=== PATIENT | female | born 1970 | race African-American/Black ===

== ENCOUNTER 2022-02-23 17:37 | Emergency (ER) | payer MEDICAID, OTHER ==
[~2022-02-23] VITALS: Ht 165.1 cm; Wt 79.5 kg
[2022-02-23 18:58] VITALS: BP 123/63
== END 2022-02-23 21:45 | disposition home or self-care (01) ==
LOC: EMS 17:37
DX: F41.9 Anxiety disorder, unspecified (principal); F12.90 Cannabis use, unspecified, uncomplicated; Z98.890 Other specified postprocedural states
CPT/HCPCS: 93005; 99283

== ENCOUNTER 2024-05-26 17:04 | Emergency (ER) | payer OTHER ==
[~2024-05-26] VITALS: Ht 162.6 cm; Wt 75.0 kg
[2024-05-26 17:11] VITALS: TEMP 97.8
[2024-05-26] MEDS: AMOX TR/POT CLAV 875 MG/125 MG TABLET PO ONE (18:09)
[2024-05-26] MEDS: PERTUSS(ACELL),DIPH,TET/PF 0.5 ML SYRINGE [ADULT] IM. ONE (18:11)
[2024-05-26] MEDS ORDERED: AMOX-457 PO (18:46)
[2024-05-26 19:13] VITALS: BP 111/59; PULSE 92; RESP 18; O2SAT 98
== END 2024-05-26 19:20 | disposition home or self-care (01) ==
LOC: EMS 17:04
DX: S61.452A Open bite of left hand, initial encounter (principal); F41.9 Anxiety disorder, unspecified; F12.90 Cannabis use, unspecified, uncomplicated; Z90.89 Acquired absence of other organs; Y04.1XXA Assault by human bite, initial encounter; Y93.89 Activity, other specified; Y92.89 Other specified places as the place of occurrence of the external cause; Y99.8 Other external cause status
CPT/HCPCS: 90471; 90715; 99283

== ENCOUNTER 2025-02-19 14:20 | Emergency (ER) | payer OTHER ==
[~2025-02-19] VITALS: Ht 162.6 cm; Wt 72.7 kg
[~2025-02-19 14:20] MED LIST: AMOX-457 PO
[2025-02-19] MEDS ORDERED: PENI500T2 PO (14:26)
[2025-02-19 14:57] VITALS: BP 128/71; PULSE 76; RESP 18; TEMP 98.1; O2SAT 99
== END 2025-02-19 15:07 | disposition home or self-care (01) ==
LOC: EMS 14:20
DX: T16.2XXA Foreign body in left ear, initial encounter (principal); F12.90 Cannabis use, unspecified, uncomplicated; Z90.89 Acquired absence of other organs; Z79.899 Other long term (current) drug therapy; W44.8XXA Other foreign body entering into or through a natural orifice, initial encounter
CPT/HCPCS: 69200; 99284; Z7502